=== PATIENT | female | born 1980 | race African-American/Black ===

== ENCOUNTER 2017-05-30 21:33 | Emergency (ER) | payer MEDICAID ==
[~2017-05-30 21:33] MED LIST: FERR1TAB84 PO; IBUP-779 PO; PRENATAL VIT; [UNRECOGNIZED DRUG - CODE] PO
[2017-05-31] MEDS ORDERED: SODIUM CHLORIDE 0.9% 1,000 ML IV ONE (00:47)
[2017-05-31] MEDS ORDERED: ONDANSETRON 4MG ODT PO ONE (01:00)
[2017-05-31 01:20] LABS: CLARITY URINE CLEAR (CLEAR); COLOR URINE YELLOW (YELLOW); KETONES URINE NEGATIVE (NEGATIVE); LEUKOCYTE ESTERASE URINE NEGATIVE (NEGATIVE); NITRITE URINE NEGATIVE (NEGATIVE); OCCULT BLOOD URINE 1+ (NEGATIVE); PH URINE 7.5 (4.5-8.0); PROTEIN URINE NEGATIVE (NEGATIVE); SPECIFIC GRAVITY URINE 1.004 (1.005-1.030); UROBILINOGEN URINE 0.2 E.U./dL (0.2-1.0)
[2017-05-31 01:33] LABS: CHLORIDE 107 mEq/L (98-107)
[2017-05-31 01:37] LABS: PROTHROMBIN TIME 10.1 sec
[2017-05-31 01:38] LABS: BASOPHILS % 0.6 % (0.0-2.0); EOSINOPHILS % 1.4 % (0.0-5.0); HEMATOCRIT. 37.8 % (36.0-48.0); HEMOGLOBIN. 12.9 g/dL (12.0-16.0); LYMPHOCYTES % 24.2 % (20.0-50.0); MEAN CORPUSCULAR HEMOGLOBIN 29.8 pg (28.0-32.0); MEAN CORPUSCULAR VOLUME 87.6 fL (81.0-99.0); MEAN PLATELET VOLUME 10.1 fl (7.4-10.4); NEUTROPHILS % 66.8 % (40.0-76.0); PLATELET 147 x1000/uL (130-400); RED BLOOD CELL COUNT 4.32 mill/uL (4.2-5.4)
[2017-05-31 01:43] LABS: CARBON DIOXIDE 24 mEq/L (21-32)
[2017-05-31] MEDS ORDERED: ACETAMINOPHEN 325MG TABLET PO ONE (03:15)
[2017-05-31 03:30] VITALS: BP 122/71
== END 2017-05-31 04:00 | disposition home or self-care (01) ==
LOC: ER 21:36
DX: O34.11 Maternal care for benign tumor of corpus uteri, first trimester (principal); Z3A.13 13 weeks gestation of pregnancy
CPT/HCPCS: 36415; 76801; 80053; 81001; 83690; 85025; 85610; 86850; 86900; 86901; 96360; 96361; 99285; J7030; Z7610; Q0162

== ENCOUNTER 2017-06-29 11:16 | Emergency (ER) | payer MEDICAID ==
[~2017-06-29] VITALS: Ht 157.5 cm; Wt 86.0 kg
[2017-06-29] MEDS ORDERED: SODIUM CHLORIDE 0.9% 1,000 ML IV ONE (13:47)
[2017-06-29] MEDS ORDERED: ACETAMINOPHEN 325MG TABLET PO ONE (14:00)
[2017-06-29 14:31] LABS: BASOPHILS % 0.5 % (0.0-2.0); EOSINOPHILS % 0.4 % (0.0-5.0); HEMATOCRIT. 37.5 % (36.0-48.0); HEMOGLOBIN. 12.8 g/dL (12.0-16.0); LYMPHOCYTES % 14.5 % (20.0-50.0); MEAN CORPUSCULAR HEMOGLOBIN 29.9 pg (28.0-32.0); MEAN CORPUSCULAR VOLUME 87.6 fL (81.0-99.0); MEAN PLATELET VOLUME 9.7 fl (7.4-10.4); MONOCYTES % 7.6 % (2.0-8.0); PLATELET 160 x1000/uL (130-400); RED BLOOD CELL COUNT 4.28 mill/uL (4.2-5.4); RED CELL DISTRIBUTION WIDTH 13.9 % (11.6-14.6)
[2017-06-29 14:47] LABS: CARBON DIOXIDE 24 mEq/L (21-32); CHLORIDE 104 mEq/L (98-107)
[2017-06-29 15:09] LABS: B-HCG QUANTITATIVE 12196 mIU/mL (<3)
[2017-06-29 16:45] VITALS: BP 122/66
== END 2017-06-29 17:30 | disposition home or self-care (01) ==
LOC: ER 13:51
DX: O03.4 Incomplete spontaneous abortion without complication (principal); Z3A.17 17 weeks gestation of pregnancy
CPT/HCPCS: 36415; 76805; 80048; 84702; 85025; 86850; 86900; 86901; 96360; 96361; 99285; J7030; Z7610